=== PATIENT | female | born 1995 | race Caucasian/White ===

== ENCOUNTER 2021-01-08 22:00 | Emergency (ER) | payer OTHER ==
[~2021-01-08] VITALS: Ht 170.2 cm; Wt 64.9 kg
[2021-01-08 22:45] VITALS: BP 139/87
[2021-01-08] MEDS ORDERED: LIDOCAINE 1% HCL (LOCAL ANESTH.) INJ 20ML MDV ID ONE (23:30)
== END 2021-01-09 01:09 | disposition home or self-care (01) ==
LOC: ER 22:00
DX: O26.893 Other specified pregnancy related conditions, third trimester (principal); L03.011 Cellulitis of right finger; Z3A.31 31 weeks gestation of pregnancy
CPT/HCPCS: 10060; 99283; J2001